=== PATIENT | male | born 1965 | race Caucasian/White ===

== ENCOUNTER 2018-03-07 21:56 | Emergency (ER) | payer BC ==
[2018-03-07] MEDS ORDERED: Lidocaine 1% 30 ML SDV INJECT ONE (22:09)
[2018-03-07] MEDS ORDERED: Bacitracin Oint 1 GM U/D Packet TOP ONE (22:09)
--- NOTE | 2018-03-07 22:44 | EDM.PDOC ---
ED HPI GENERAL MEDICAL PROBLEM - General Chief Complaint: Upper Extremity Injury/Pain Stated Complaint: [id number] CUT LT HAND BLEEDING Time Seen by Provider: 03/07/18 22:10 Source of Information: Reports: Patient - History of Present Illness INITIAL COMMENTS - FREE TEXT/NARRATIVE: Patient presented to the ED with a laceration of the left hand near the thumb that occurred just prior to arrival at the ED this evening. He reports that he had an open pocket knife next to him and he accidentally moved his thumb across the blade. He noted brisk bleeding, applied pressure and proceeded here today. Believes tetanus is up to date, is in . No numbness or tingling in the thumb. No difficulty moving the finger. Left 1-Thumb Pain Score (Numeric/FACES): 2 - Related Data Allergies Allergy/AdvReac Type Severity Reaction Status Date / Time No Known Allergies Allergy Verified 03/07/18 22:02 Home Meds: Home Meds . [No Known Home Meds] 03/07/18 [History] Past Medical History - Past Health History Medical/Surgical History: Denies Medical/Surgical History Social & Family History - Tobacco Use Smoking Status *Q: Never Smoker Second Hand Smoke Exposure: No - Recreational Drug Use Recreational Drug Use: No Review of Systems - Review of Systems Review Of Systems: ROS reveals no pertinent complaints other than HPI. ED EXAM, GENERAL - Physical Exam Exam: See Below Exam Limited By: No Limitations General Appearance: Alert, WD/WN, No Apparent Distress Eye Exam: Bilateral Eye: Normal Inspection Ears: Normal External Exam, Hearing Grossly Normal Nose: Normal Inspection Throat/Mouth: Normal Inspection Head: Atraumatic, Normocephalic Neck: Normal Inspection Respiratory/Chest: No Respiratory Distress Cardiovascular: Normal Peripheral Pulses Extremities: Other (2 cm laceration over the proximal thumb on the back of the hand with brisk bleeding noted. Movement of thumb intact. ) Neurological: Alert, Oriented, Other (No sensory deficit noted. ) Psychiatric: Normal Affect, Normal Mood Skin Exam: Other (lacerations as noted above) ED TRAUMA EXTREMITY PROCEDURES - Laceration/Wound Repair Left Posterior Proximal Other Lac/Wound Length In cm: 1 Appearance: Subcutaneous, Linear, Clean Distal NVT: Neuro & Vascular Intact, No Tendon Injury Anesthetic Type: Local Local Anesthesia - Lidocaine (Xylocaine): 1% Plain Local Anesthetic Volume: 5cc Skin Prep: Chlorhexidine (Hibiciens), Saline, Sterile Drape Exploration/Debridement/Repair: Wound Explored Closed With: Sutures Suture Size: 4-0 # of Sutures: 3 Suture Type: Prolene, Interrupted Suture Size: 4-0 # of Sutures: 3 Repaired With: Vicryl Tetanus Status Addressed: Yes (Believes he has this through . Will call his office tomorrow) Complications: No Course - Vital Signs Last Recorded V/S: Last Vital Signs Temp 36.2 C 03/07/18 21:58 Pulse 91 03/07/18 21:58 Resp 18 03/07/18 21:58 BP 187/89 H 03/07/18 21:58 Pulse Ox 100 03/07/18 21:58 - Orders/Labs/Meds Meds: Medications Discontinued Medications Generic Name Dose Route Start Last Admin Trade Name Bruce PRN Reason Stop Dose Admin Bacitracin 1 dose 03/07/18 22:09 03/07/18 22:14 Bacitracin Oint 1 Gm TOP 03/07/18 22:10 1 dose ONETIME ONE Administration Lidocaine HCl 30 ml 03/07/18 22:09 03/07/18 22:13 Xylocaine-Mpf 1% INJECT 03/07/18 22:10 30 ml ONETIME ONE Administration Departure - Departure Time of Disposition: 22:42 Disposition: Home, Self-Care 01 Clinical Impression: Laceration - Discharge Information Instructions: Laceration Care, Adult Referrals: PCP,None [Primary Care Provider] - Forms: ED Department Discharge Additional Instructions: Call to confirm tetanus shot. Follow up for suture removal in ten days
== END 2018-03-07 22:51 | disposition home or self-care (01) ==
LOC: DL.ED 21:56
DX: S61.012A Laceration without foreign body of left thumb without damage to nail, initial encounter (principal); W26.0XXA Contact with knife, initial encounter
CPT/HCPCS: 12001; 12011; 99282

== ENCOUNTER 2020-06-23 05:31 | Day surgery (SDC) | payer BC ==
[2020-06-23] MEDS ORDERED: fentaNYL 100 MCG/2 ML SDV IV ONE ×3 (05:32→06:30)
[2020-06-23] MEDS ORDERED: Midazolam 1 MG/ML 2 ML SDV IV ONE ×7 (05:32→06:37)
[2020-06-23] MEDS ORDERED: Sodium Chloride 0.9% 10 ML Syringe FLUSH PRN (06:00)
[2020-06-23] MEDS ORDERED: Dextrose 5%-0.45% NaCl 1,000 ML IV SCH (06:00)
[2020-06-23] MEDS ORDERED: fentaNYL 100 MCG/2 ML SDV ONE (06:10)
[2020-06-23] MEDS ORDERED: Midazolam 1 MG/ML 2 ML SDV ONE (06:10)
--- NOTE | 2020-06-23 14:04 | OR ---
DATE: 06/23/2020 PROCEDURE: Total colonoscopy. INSTRUMENT USED: [id number] Olympus video colonoscope. PREMEDICATIONS: Fentanyl 100 mcg intravenous, Versed 4 mg intravenous. Nasal O2 cannula. The procedure was done under pulse oximetry, BP recording, and desk monitor. INDICATION: The patient with rectal bleeding. Colonoscopic examination is done for detection of any polypoid lesions and removal, endoscopic hemostasis therapy if needed. DESCRIPTION OF PROCEDURE: Initial rectal exam showed external hemorrhoidal tags. Rigid anoscopy showed small internal hemorrhoids without bleeding from them. The colonoscope was passed with ease up to the ileocecal area. Photographs were taken of the normal-appearing cecum, identified by landmarks of appendiceal orifice and double-bulged ileocecal folds. No bleeding was noted from any of the visualized areas at the commencement of the examination. Bowel preparation was found to be adequate. Henderson scale 2 in all the regions, total score 6. No stricture. No vascular ectasia. No large isolated ulcerations seen. No evidence of diffuse inflammatory bowel disease in the form of friability, contact bleeding, or ulcerations. No polyp or tumor mass identified. Probing the proximal sides of folds and flexures using adequate distention and clearing up the stool material, withdrawal of the scope was made, cecum to rectum time over 6 minutes. No bleeding was noted from any of the visualized areas at the completion of the examination. IMPRESSION: External and internal hemorrhoids. The patient tolerated the procedure well. [facility] /[id number]
== END 2020-06-23 08:29 | disposition home or self-care (01) ==
LOC: DL.ENDO 05:31
PROVIDERS: ATTEND Internal Medicine Gastroenterology
DX: K64.8 Other hemorrhoids (principal); K64.4 Residual hemorrhoidal skin tags; I10 Essential (primary) hypertension; Z86.19 Personal history of other infectious and parasitic diseases; Z90.89 Acquired absence of other organs; Z98.890 Other specified postprocedural states; Z87.2 Personal history of diseases of the skin and subcutaneous tissue
CPT/HCPCS: 45378; J2250; J3010; J7042